=== PATIENT | female | born 2000 | race Native Hawaiian/Other Pacific Islander ===

== ENCOUNTER 2020-10-20 22:47 | Outpatient (CLI) | payer MEDICAID ==
[2020-10-20 23:18] VITALS: BP 110/53
[2020-10-20] MEDS ORDERED: ACETAMINOPHEN 500 MG TAB PO ONE (23:35)
[2020-10-20 23:53] LABS: Bacteria,Urine 1+ /HPF (Negative); Bilirubin,Urine NEG (Negative); Blood,Urine NEG (Negative); Color,Urine Yellow (Yellow); Mucus,Urine 3+ /HPF
== END 2020-10-21 01:21 | disposition home or self-care (01) ==
LOC: TRG 22:47 → APU 22:49 → TRG 10-21 01:21
PROVIDERS: ATTEND Obstetrics & Gynecology
DX: Z34.93 Encounter for supervision of normal pregnancy, unspecified, third trimester (principal); Z3A.28 28 weeks gestation of pregnancy
CPT/HCPCS: 59025; 81001

== ENCOUNTER 2020-12-16 23:12 | Outpatient (CLI) | payer MEDICAID ==
[2020-12-17 00:25] VITALS: BP 103/56
[2020-12-17] MEDS ORDERED: LACTATED RINGERS 1,000 ML ONE (02:55)
[2020-12-17 04:07] LABS: Bacteria,Urine 1+ /HPF (Negative); Bilirubin,Urine NEG (Negative); Blood,Urine NEG (Negative); Color,Urine Yellow (Yellow); Mucus,Urine 1+ /HPF
[2020-12-17] MEDS ORDERED: NIFEdipine*For Tocolysis only* 10 MG CAPSULE PO ONE (05:22)
[2020-12-17] MEDS ORDERED: NIFEdipine*For Tocolysis only* 10 MG CAPSULE ONE (05:26)
== END 2020-12-17 05:38 | disposition home or self-care (01) ==
LOC: TRG 23:12 → APU 23:13 → TRG 12-17 05:38
PROVIDERS: ATTEND Obstetrics & Gynecology
DX: O26.893 Other specified pregnancy related conditions, third trimester (principal); R10.2 Pelvic and perineal pain; M54.5 Low back pain; Z3A.36 36 weeks gestation of pregnancy
CPT/HCPCS: 81001

== ENCOUNTER 2021-08-26 22:23 | Emergency (ER) | payer MEDICAID ==
[2021-08-26 23:06] VITALS: BP 115/59
[2021-08-27 00:38] LABS: Basophils % (Auto) 0.2 % (0.0-1.8); Eosinophils % (Auto) 0.2 % (0.0-4.3); Hematocrit 41.7 % (30.3-42.9); Hemoglobin 14.1 gm/dl (10.1-14.3); Lymphocytes # (Auto) 1.7 K/mm3 (1.2-5.4); Lymphocytes % (Auto) 20.5 % (13.4-35.0); Mean Corpuscular HGB Conc 34 % (30-34); Mean Corpuscular Volume 89 fl (79-97); Monocytes # (Auto) 0.3 K/mm3 (0.0-0.8); Monocytes % (Auto) 3.9 % (0.0-7.3); Platelet Count 213 K/mm3 (140-440); Red Blood Count 4.69 M/mm3 (3.65-5.03); Red Cell Distribution Width 13.6 % (13.2-15.2)
[2021-08-27 01:44] LABS: Bacteria,Urine 1+ /HPF (Negative); Bilirubin,Urine NEG (Negative); Blood,Urine NEG (Negative); Color,Urine Yellow (Yellow); Mucus,Urine FEW /HPF; Protein,Urine <15 mg/dL mg/dL (Negative); RBC,Urine < 1.0 /HPF (0.0-6.0); Urobilinogen,Urine < 2.0 mg/dL (<2.0)
== END 2021-08-27 05:07 | disposition left against medical advice (07) ==
LOC: ED 22:23
DX: O26.891 Other specified pregnancy related conditions, first trimester (principal); R10.30 Lower abdominal pain, unspecified; Z3A.14 14 weeks gestation of pregnancy; Z53.21 Procedure and treatment not carried out due to patient leaving prior to being seen by health care provider
CPT/HCPCS: 36415; 81001; 84702; 84703; 85025; 86900; 86901

== ENCOUNTER 2021-12-27 17:57 | Outpatient (CLI) | payer MEDICAID ==
[2021-12-27 19:50] VITALS: BP 97/55
[2021-12-27] MEDS ORDERED: LACTATED RINGERS 1,000 ML IV ONE (20:32)
--- NOTE | 2021-12-27 23:54 | Ultrasound Report ---
ULTRASOUND OBSTETRIC INDICATION / CLINICAL INFORMATION: [email or web address] - Clinical Gestational Age (GA) in weeks, days: 31, 6 TECHNIQUE: Transabdominal and Transvaginal. COMPARISON: None available. FINDINGS: Single intrauterine . Biparietal Diameter = 8.3 cm = 33, 4 weeks, days Head Circumference = 29.1 cm = 32, 0 weeks, days Abdominal Circumference = 27.6 cm = 31, 5 weeks, days Femur Length = 6.1 cm = 31, 3 weeks, days Average Ultrasound Age (AUA) = 32, 1 weeks, days Heart Rate: 169 beats per minute. Estimated Weight in grams (if calculated): 1840 Estimated Weight Growth Percentile (if calculated): 37 Position: cephalic. Cervix: closed. Length in cm (if measured): 3.6Amniotic Fluid Volume: normal Amniotic Fluid Index (EBONI) in cm (if calculated): 11.4. Maternal Adnexa: No significant abnormality. IMPRESSION: 1. Single, living intrauterine with estimated sonographic age of 32, 1 weeks, days. 2. No significant sonographic abnormality. 3. Cervical length of 3.6 4. Amniotic fluid index of 11.4 Signer Name: Tye Reyes MD Signed: 12/27/2021 11:49 PM Workstation Name: [id number]
== END 2021-12-27 23:08 | disposition home or self-care (01) ==
LOC: TRG 17:57 → APU 17:59 → TRG 23:08
PROVIDERS: ATTEND Obstetrics & Gynecology Gynecology
DX: O26.893 Other specified pregnancy related conditions, third trimester (principal); R10.30 Lower abdominal pain, unspecified; Z3A.31 31 weeks gestation of pregnancy
CPT/HCPCS: 36415; 76816; 76817; 82731